=== PATIENT | female | born 1980 | race Hispanic/Latino ===

== ENCOUNTER 2017-08-26 10:20 | Day surgery (SDC) | payer BC ==
[2017-08-26] MEDS ORDERED: Lidocaine 2% 10 ML INJ ONE (11:05)
[2017-08-26] MEDS ORDERED: Lidocaine 2% Jelly 5 ML TUBE ONE (11:05)
[2017-08-26] MEDS ORDERED: Bupivacaine HCl 0.5%/Epinephrine 1:200,000/PF 30 ml Vial ONE (11:05)
[2017-08-26] MEDS ORDERED: Famotidine/PF 20 mg/2ml Vial ONE (11:28)
[2017-08-26] MEDS ORDERED: Fentanyl 100 MCG/2 ML VIAL ONE ×3 (11:30→15:08)
[2017-08-26] MEDS ORDERED: HYDROmorphone 0.5 MG/0.5 ML SYRINGE ONE (11:30)
[2017-08-26] MEDS ORDERED: CEFAZOLIN/Water 2 GM/20 ML SYRINGE ONE (12:08)
[2017-08-26] MEDS ORDERED: Promethazine HCl 25 MG/ML VIAL ONE (13:40)
[2017-08-26] MEDS ORDERED: Ondansetron HCl/PF 4 MG/2 ML Vial ONE (14:08)
[2017-08-26] MEDS ORDERED: Lidocaine 1% PF 5 ML VIAL ONE (14:08)
[2017-08-26] MEDS ORDERED: Dexamethasone 20 MG/5 ML VIAL ONE (14:08)
[2017-08-26] MEDS ORDERED: Ketorolac Tromethamine 30 MG/ML VIAL ONE (14:08)
[2017-08-26] MEDS ORDERED: Glycopyrrolate 0.2 MG/ML 5 ML SYRINGE ONE (14:08)
[2017-08-26] MEDS ORDERED: PROPOFOL 200 MG/20 ML VIAL ONE (14:08)
[2017-08-26] MEDS ORDERED: HYDROcodone/Acetaminophen 5/325 mg Tablet ONE (16:26)
--- NOTE | 2017-08-29 09:48 | OP ---
DATE OF PROCEDURE: 08/26/2017 PREOPERATIVE DIAGNOSES: Prolapsing internal hemorrhoids, soft tissue mass back. POSTOPERATIVE DIAGNOSES: Prolapsing internal hemorrhoids, soft tissue mass back. PROCEDURE: 1. Excision of 3 cm soft tissue mass, back. 2. PPH stapled hemorrhoidectomy. SURGEON: Dr. Alireza Smith ANESTHESIA: General. ESTIMATED BLOOD LOSS: Minimal. COMPLICATIONS: None. SPECIMEN: Hemorrhoids and soft tissue mass. PROCEDURE IN DETAIL: The patient today preoperative, SUPREP colon prep. She was taken to the operat ing room and laid supine on the table. After general anesthetic was obtained, she was placed in the prone position. Her back and perineum was all prepped and draped in a sterile fashion. Her buttocks had been taped open. A lateral transverse incision made over the soft tissue mass in the mid back. Cautery was used to dissect down to the mass and it is excised and sent to path for final diagnosis. The wound is irrigated. Local anesthetic is applied. The wound was closed using 3-0 Vicryl, 4-0 M onocryl, and Dermabond. Next, the anal exam revealed no anal canal mass. The obturator and sphincter protecting device was s ewn to the perianal skin using silk suture. The obturator was removed. A pursestring of Prolene is placed 2 cm above the dentate line circumferentially. The anvil for the stapler was opened to its fu llest extent and placed above the pursestring. The pursestring is tied down loosely. The two ends w ere brought through the stapler. The stapler is tightened down into the green zone and fired. A goo d ring of internal hemorrhoid tissue was obtained. A few bleeders on the staple line were oversewn. Gelfoam and lidocaine jelly is packed in the anal canal. There was no injury to the sphincter muscl es. The patient is en route to recovery in stable condition. All instrument counts, needle counts, lap counts are correct.
--- NOTE | 2017-09-01 13:54 | PQF ---
[facility] POST DISCHARGE CLINICAL DOCUMENTATION IMPROVEMENT CLARIFICATION FORM Todays Date: 08/30/17 Patients Name AMIARANI ISLAS Admit Date 08/26/17 Disch Date 08/26/17 Clinical Veterinarian Name Pal Puga Email: [email or web address] Cell: [phone] Present Clinical Indicators - Signs / Symptoms Results and Location in Medical Record [ ] Documentation of: [ ] [ ] Documentation of: [ ] [ ] Documentation of: [ ] [ ] Documentation of: [ ] [ ] Risks [ ] [ ] [ ] Treatment [ ] Excision soft tissue mass back Please specify the size of margins of excised mass of back, only size of mass is stated in op report [ ] [ ] Alireza Livingston The documentation in this patients record requires clarification to ensure coding compliance and accuracy. Check the appropriate box and include in your discharge summary. [ ] [ ] [ ] [ ] Please check this box if this does not apply to this patient [ ] Unable to determine [ ] Other diagnosis: Review the following information and exercise your independent professional judgment in responding to the clarification. Based upon the clinical findings, risk factors, and treatment, please clarify if you are treating one of the above probable or suspected diagnoses. Physician Signature: Date Time BAYLEED
== END 2017-08-26 17:15 | disposition home or self-care (01) ==
LOC: SDC 10:20
PROVIDERS: ATTEND Surgery
PROC: 06LY0CC Occlusion of Hemorrhoidal Plexus with Extraluminal Device, Open Approach (ICD-10-PCS; principal; 2017-08-26)
PROC: 0JB70ZZ Excision of Back Subcutaneous Tissue and Fascia, Open Approach (ICD-10-PCS; 2017-08-26)
DX: K64.8 Other hemorrhoids (principal); E65 Localized adiposity; Z88.1 Allergy status to other antibiotic agents; Z88.2 Allergy status to sulfonamides; Z91.048 Other nonmedicinal substance allergy status; Z79.899 Other long term (current) drug therapy; Z79.2 Long term (current) use of antibiotics
CPT/HCPCS: 88304; 96374; J0670; J1100; J1170; J1885; J2001; J2405; J2550; J2704; J3010; S0028

== ENCOUNTER 2022-07-18 13:13 | Emergency (ER) | payer BC | END 2022-07-18 14:03 | disposition home or self-care (01) | LOC: ERS 13:13 | DX: R55 Syncope and collapse (principal); I10 Essential (primary) hypertension; E03.9 Hypothyroidism, unspecified; K21.9 Gastro-esophageal reflux disease without esophagitis; Z79.899 Other long term (current) drug therapy | CPT/HCPCS: 93005; 96360 ==